=== PATIENT | female | born 1925 | race Caucasian/White ===

== ENCOUNTER 2016-04-02 16:02 | Emergency (ER) | payer OTHER ==
--- NOTE | 2016-04-02 16:05 | EDPHY ---
H & P Time Seen by Provider: 04/02/16 16:04 Constitutional: Initial Vital Signs Temperature (C) 36.9 C 04/02/16 16:15 Heart Rate 75 04/02/16 16:15 Respiratory Rate 18 04/02/16 16:15 Blood Pressure 129/53 H 04/02/16 16:15 O2 Sat (%) 91 L 04/02/16 16:15 O2 Delivery Mode Room Air Allergies/Adverse Reactions: amoxicillin Allergy (Intermediate, Verified 04/02/16 16:19) Rash Sulfa (Sulfonamide Antibiotics) Allergy (Intermediate, Verified 04/02/16 16:19) Rash Home Medications: Medication Instructions Recorded Amiodarone HCl 04/02/16 Azelastine 04/02/16 Calcium 04/02/16 Coumadin 04/02/16 Fish Oil 04/02/16 Fluticasone Nasal 04/02/16 Lasix 04/02/16 [place] 10-325 Tablet 04/02/16 Norvasc 04/02/16 PRILOSEC 04/02/16 Potassium 04/02/16 Singulair 04/02/16 Synthroid 04/02/16 Zocor 04/02/16 Medical Decision Making ED Course/Re-evaluation: CHIEF COMPLAINT: Cough, chest tightness, shortness of breath. HISTORY OF PRESENT ILLNESS: The patient is an 89-year-old female with a history of COPD who presents with chest tightness, shortness of breath, and productive cough. She has had the cough for 3 days since driving to [place] from [place] (she just arrived earlier today). Her chest tightness began earlier today just prior to arrival. She denies fever, vomiting, or other complaints. REVIEW OF SYSTEMS: A 10 point review of systems was performed and is negative with the exception of the elements mentioned in the history of present illness. PHYSICAL EXAM: HR, BP, O2 Sat, RR. Temp noted General Appearance: Alert, well hydrated, appropriate, and non-toxic appearing. Head: Atraumatic without scalp tenderness or obvious injury Eyes: Pupils equal, round, reactive to light and accommodation, EOMI, no trauma , no injection. Ears: Clear bilaterally, no perforation, normal landmarks Nose: Atraumatic, no rhinorrhea, clear. Throat: There is no erythema or exudates, no lesions, normal tonsils, mucus membranes moist. Neck: Supple, 2+ carotid upstroke, nontender, no lymphadenopathy. Respiratory: No retractions, no distress, no wheezes, and no accessory muscle use. Lungs are clear to auscultation bilaterally. Cardiovascular: Regular rate and rhythm, no murmurs, rubs, or gallops. Bilateral carotid, radial, dorsalis pedis, and posterior tibial pulses intact. Good capillary refill all extremities. Gastrointestinal: Abdomen is soft, nontender, non-distended, no masses, no rebound, no guarding, no peritoneal signs. Musculoskeletal: Normal active ROM of all extremities, atraumatic. Neurological: Alert, appropriate, and interactive. The patient has normal DTRs and non-focal cranial nerves, motor, sensory, and cerebellar exam. Skin: No rashes, good turgor, no nodules on palpation. Past medical history: Past surgical history: Family history: Social history: DIAGNOSTICS/PROCEDURES/CRITICAL CARE TIME: DIFFERENTIAL DIAGNOSIS: MEDICAL DECISION MAKING:
[2016-04-02] MEDS ORDERED: IPRATROPIUM/ALBUTEROL 3 ML DEYVIAL IH ONE (16:18)
[2016-04-02 16:20] VITALS: PULSE 75
--- NOTE | 2016-04-02 16:30 | DX ---
PA and lateral chest. Clinical History: dyspnea Comparison Study: None available. Findings: Small bilateral pleural effusions are associated with interstitial prominence in the lower lungs bilaterally, suggestive of mild congestive heart failure. Cardiac silhouette is upper normal. M oderate tortuosity descending thoracic aorta.. . Impression: Suspect early congestive heart failure, with small bilateral pleural effusions..
--- NOTE | 2016-04-02 16:33 | UCPHY ---
H & P Patient Type: New Chief Complaint Nursing Narrative: C/o productive cough, SOB, and chest tightness x 2 days. Denies fever. Time Seen by Provider: 04/02/16 16:04 - Personal History Current Tetanus Diphtheria and Acellular Pertussis (TDAP): Yes Tetanus Vaccine Date: within 10 years - Medical/Surgical History Hx Asthma: No Hx Chronic Respiratory Disease: Yes Hx Diabetes: No Hx Cardiac Disease: Yes Hx Renal Disease: No Hx Cirrhosis: No Hx Alcoholism: No Hx HIV/AIDS: No Hx Splenectomy or Spleen Trauma: No Other PMH: Tonsilectomy, COPD, AFIB, HTN, CHF, hypothyroidism, hyperlipidemia - Family History Significant Family History: No pertinent family hx - Social History Smoking Status: Former smoker Constitutional: Initial Vital Signs Temperature (C) 36.9 C 04/02/16 16:15 Heart Rate 75 04/02/16 16:15 Respiratory Rate 18 04/02/16 16:15 Blood Pressure 129/53 H 04/02/16 16:15 O2 Sat (%) 91 L 04/02/16 16:15 O2 Delivery Mode Room Air Allergies/Adverse Reactions: amoxicillin Allergy (Intermediate, Verified 04/02/16 16:19) Rash Sulfa (Sulfonamide Antibiotics) Allergy (Intermediate, Verified 04/02/16 16:19) Rash Home Medications: Medication Instructions Recorded AZITHROMYCIN [Z-PACK] 250 mg PO DAILY #1 packet 04/02/16 Amiodarone HCl 04/02/16 Azelastine 04/02/16 Calcium 04/02/16 Coumadin 04/02/16 Fish Oil 04/02/16 Fluticasone Nasal 04/02/16 Lasix 04/02/16 [employer] 10-325 Tablet 04/02/16 Norvasc 04/02/16 PRILOSEC 04/02/16 Potassium 04/02/16 Singulair 04/02/16 Synthroid 04/02/16 Zocor 04/02/16 Medical Decision Making ED Course/Re-evaluation: CHIEF COMPLAINT: Cough, chest tightness, shortness of breath. HISTORY OF PRESENT ILLNESS: The patient is an 89-year-old female with a history of COPD and pneumonia who presents with chest tightness, shortness of breath, and productive cough. She has had the cough for 3 days since driving to [place] from [place] (she just arrived earlier today). Her chest tightness began earlier today just prior to arrival. Tightness is described as "the lungs caving in on the heart." She denies fever, vomiting, or other complaints. REVIEW OF SYSTEMS: A 10 point review of systems was performed and is negative with the exception of the elements mentioned in the history of present illness. PHYSICAL EXAM: HR, BP, O2 Sat, RR. Temp noted General Appearance: Alert, well hydrated, appropriate, and non-toxic appearing. Head: Atraumatic without scalp tenderness or obvious injury Eyes: Pupils equal, round, reactive to light and accommodation, EOMI, no trauma , no injection. Ears: Clear bilaterally, no perforation, normal landmarks Nose: Atraumatic, no rhinorrhea, clear. Throat: There is no erythema or exudates, no lesions, normal tonsils, mucus membranes moist. Neck: Supple, 2+ carotid upstroke, nontender, no lymphadenopathy. Respiratory: No retractions, no distress, no wheezes, and no accessory muscle use. Lungs are clear to auscultation bilaterally. Cardiovascular: Regular rate and rhythm, no murmurs, rubs, or gallops. Bilateral carotid, radial, dorsalis pedis, and posterior tibial pulses intact. Good capillary refill all extremities. Gastrointestinal: Abdomen is soft, nontender, non-distended, no masses, no rebound, no guarding, no peritoneal signs. Musculoskeletal: Normal active ROM of all extremities, atraumatic. Neurological: Alert, appropriate, and interactive. The patient has normal DTRs and non-focal cranial nerves, motor, sensory, and cerebellar exam. Skin: No rashes, good turgor, no nodules on palpation. Past medical history:COPD, pneumonia, afib, hypertension. Past surgical history:Tonsillectomy. Family history:Non-contributory. Social history:Visiting from [place]. DIAGNOSTICS/PROCEDURES/CRITICAL CARE TIME: Study: PA and Lateral Chest X-ray Indication: Trauma, Chest pain Results: I viewed the images myself on the PACS system. The radiologist interpretation per Dr. Weir is: Suspect early congestive heart failure, with small bilateral pleural effusions. The 12 lead EKG was interpreted by myself. See hard copy and/or "tracemaster" electronic copy for interpretation. Sinus rhythm in the 70s, nonspecific anterior t-wave changes. DIFFERENTIAL DIAGNOSIS: The differential diagnosis for the patient's shortness of breath and hypoxemia included but was not limited to pneumonia, myocardial infarction, acute mountain sickness, high altitude pulmonary edema, congestive heart failure, and pulmonary embolus. MEDICAL DECISION MAKIN-year-old female, history of pneumonia and COPD, presents with daughter for chest tightness, shortness of breath, and productive cough. These symptoms began as she was driving with her from [place]. She arrived just prior to arrival and came straight to urgent care. On exam I hear mildly decreased breath sounds but no obvious signs of pneumonia. A chest x-ray was ordered. DuoNeb administered for breathing. Patient's chest x-ray shows mild cardiomegaly and possible CHF but no infiltrate. She will have EKG and blood work. An IV was established. EKG shows sinus rhythm with non-specific anterior t-wave changes. There are no previous EKGs to compare as the patient is [place]. This patient has an elevated BNP. She is already on Lasix and antihypertensives. She is not having any oxygen difficulties and she is 90-93% on room air despite her sinusitis and [place]. I will ask this patient is taking extra dose of her Lasix this evening. She will return here if her breathing gets any worse. I will start her on antibiotics for sinusitis and recommend Mucinex and Flonase. I certainly considered admission for this patient however due to her known fairly normal oxygen saturations in the fact that she is here visiting her daughter for a week she does not want to be admitted to the hospital. - Data Points Laboratory Results: Laboratory Results 04/02/16 16:55 04/02/16 16:55 04/02/16 16:55 WBC 7.04 10^3/uL (3.80-9.50) RBC 3.63 L 10^6/uL (4.18-5.33) Hgb 11.5 L g/dL (12.6-16.3) Hct 35.2 L % (38.0-47.0) MCV 97.0 fL (81.5-99.8) MCH 31.7 pg (27.9-34.1) MCHC 32.7 g/dL (32.4-36.7) RDW 14.7 % (11.5-15.2) Plt Count 187 10^3/uL (150-400) MPV 10.3 fL (8.7-11.7) Neut % (Auto) 69.5 % (39.3-74.2) Lymph % (Auto) 18.2 % (15.0-45.0) [place] % (Auto) 11.2 % (4.5-13.0) Eos % (Auto) 0.1 L % (0.6-7.6) Baso % (Auto) 0.6 % (0.3-1.7) Nucleat RBC Rel Count 0.0 % (0.0-0.2) Absolute Neuts (auto) 4.89 10^3/uL (1.70-6.50) Absolute Lymphs (auto) 1.28 10^3/uL (1.00-3.00) Absolute Monos (auto) 0.79 10^3/uL (0.30-0.80) Absolute Eos (auto) 0.01 L 10^3/uL (0.03-0.40) Absolute Basos (auto) 0.04 10^3/uL (0.02-0.10) Absolute Nucleated RBC 0.00 10^3/uL (0-0.01) Immature Gran % 0.4 % (0.0-1.1) Immature Gran # 0.03 10^3/uL (0.00-0.10) Sodium 139 mEq/L (134-144) Potassium 3.7 mEq/L (3.5-5.2) Chloride 101 mEq/L (97-110) Carbon Dioxide 25 mEq/l (22-31) Anion Gap 13 mEq/L (8-16) BUN 16 mg/dL (7-23) Creatinine 1.1 H mg/dL (0.6-1.0) Estimated GFR 47 Glucose 101 H mg/dL (70-100) Calcium 9.0 mg/dL (8.5-10.4) Troponin I < 0.012 ng/mL (0-0.034) NT-Pro-B Natriuret Pep 3940 H pg/mL (0-450) Medications Given: Discontinued Medications Albuterol/Ipratropium (Duoneb) 3 ml IH EDNOW ONE Stop: 04/02/16 16:19 Last Admin: 04/02/16 16:28 Dose: 3 ml Azithromycin (Zithromax) 500 mg PO EDNOW ONE PRN Reason: Protocol Stop: 04/02/16 17:42 Last Admin: 04/02/16 17:54 Dose: 500 mg Departure - Departure Disposition: Home, Routine, Self-Care Clinical Impression: CHF (congestive heart failure) Qualifiers: Congestive heart failure type: unspecified congestive heart failure type Congestive heart failure chronicity: chronic Qualifier Code: (I50.9) Heart failure, unspecified Sinusitis Qualifiers: Sinusitis location: maxillary Chronicity: acute Recurrence: non-recurrent Qualifier Code: (J01.00) Acute maxillary sinusitis, unspecified Condition: Good Instructions: Pulmonary Edema (ED), Sinusitis (ED) Additional Instructions: Take an extra dose of Lasix today. If her breathing gets any worse return here. Finish her antibiotic. Purchased Flonase 1 puff in each nostril twice daily [id number]. Also purchased Mucinex 1200 mg twice daily. Referrals: OUT OF STATE,. [Primary Care Provider] - As per Instructions Prescriptions: AZITHROMYCIN [Z-PACK] 250 mg PO DAILY #1 packet - PQRS PQRS Measurement: 134: Depression screening and followup, PRIME MD-PHQ2 (12 years and older) Over the last 2 weeks, how often have you been bothered by any of the following problems? 1. Feeling down, depressed, or hopeless? 2. Little interest or pleasure in doing things? [Patient answered no to both 1 and 2] 130: Documentation of medications. [Reviewed all patient medications, doses, route and frequency.] 226: Do you smoke? [No.] 47: 65 and older: Advanced care planning. [Patient has advanced directive.] 51: 18 years old and older with diagnosis of COPD, spirometry performance. [Spirometry not performed; equipment not available.] 52: 18 years old and older with COPD and symptoms of COPD or FEV1<60% predicted prescribed a B Agonist. [Spirometry not performed; equipment not available.] Report Scribed for: Ruben Cruz Report Scribed by: Zuhair Moseley Date of Report: 04/02/16 Time of Report: 16:23
--- NOTE | 2016-04-02 16:50 | CPEKG ---
Heart Rate: 73 RR Interval: 822 P-R Interval: 228 QRSD Interval: 82 QT Interval: 448 QTC Interval: 494 P [place]: 63 QRS [place]: 4 T Wave [place]: 7 EKG Severity - ABNORMAL ECG - EKG Impression: SINUS RHYTHM EKG Impression: FIRST DEGREE AV BLOCK EKG Impression: BORDERLINE T ABNORMALITIES, ANTERIOR LEADS EKG Impression: BORDERLINE PROLONGED QT INTERVAL Electronically Signed By: Ruben Cruz 02-Apr-2016 21:25:09
[2016-04-02 16:59] LABS: % IMMATURE GRANULYOCYTES 0.4 % (0.0-1.1); ABSOLUTE IMMATURE GRANULOCYTES 0.03 10^3/uL (0.00-0.10); ADD DIFF? NO; ADD MORPH? NO; ADD SCAN? NO; ATYPICAL LYMPHOCYTE FLAG 0 (0-99); FRAGMENT RBC FLAG 0 (0-99); HEMATOCRIT 35.2 % (38.0-47.0); HEMOGLOBIN 11.5 g/dL (12.6-16.3); LEFT SHIFT FLG 0 (0-99); LIPEMIA HEMOLYSIS FLAG 80 (0-99); MEAN CELL HEMOGLOBIN 31.7 pg (27.9-34.1); MEAN CELL HEMOGLOBIN CONCENTR. 32.7 g/dL (32.4-36.7); MEAN PLATELET VOLUME 10.3 fL (8.7-11.7); PLATELET CLUMPS FLAG 0 (0-99); PLATELET COUNT 187 10^3/uL (150-400); RED BLOOD CELL COUNT 3.63 10^6/uL (4.18-5.33); RED CELL DISTRIBUTION WIDTH 14.7 % (11.5-15.2)
[2016-04-02 17:15] LABS: ANION GAP 13 mEq/L (8-16); CARBON DIOXIDE 25 mEq/l (22-31); CHLORIDE 101 mEq/L (97-110); CREATININE 1.1 mg/dL (0.6-1.0); GLOMERULAR FILTRATION RATE 47; GLUCOSE 101 mg/dL (70-100); POTASSIUM 3.7 mEq/L (3.5-5.2); SODIUM 139 mEq/L (134-144)
[2016-04-02 17:22] LABS: TROPONIN I < 0.012 ng/mL (0-0.034)
[2016-04-02] MEDS ORDERED: AZITHROMYCIN 250 MG TAB PO ONE (17:41)
[2016-04-02 17:58] VITALS: BP 116/51; RESP 16; TEMP 98.6; O2SAT 92
== END 2016-04-02 17:54 | disposition home or self-care (01) ==
LOC: CED 16:02
DX: J01.90 Acute sinusitis, unspecified (principal); J81.0 Acute pulmonary edema; R94.31 Abnormal electrocardiogram [ECG] [EKG]; I77.1 Stricture of artery; Z87.891 Personal history of nicotine dependence
CPT/HCPCS: 71020; 93005; G0463; 80048-PO; 83880-PO; 84484-PO; 85025-PO